=== PATIENT | female | born 1945 | race Caucasian/White ===

== ENCOUNTER → 2019-05-12 | Outpatient (CLI) | payer MEDICARE ==
--- NOTE | 2019-05-12 11:21 | REP ---
DUPLEX CAROTID SONOGRAPHY: HISTORY: Visual disturbances. No comparison study. FINDINGS: Antegrade flow was observed in both vertebral arteries. RIGHT CAROTID: Right common carotid artery is unremarkable except for some diffuse intimal thickening. There is moderate plaquing in the bulb, proximal ICA and proximal ECA. The proximal external carotid artery is occluded. Color flow and spectral Doppler interrogation are normal in the proximal ICA. Velocity Chart Right Carotid: PSV EDV Right CCA 85 cm/s Right ICA 99 cm/s 14 cm/s Right ECA occluded Right ICA/CCA ratio normal 1.17 IMPRESSION: Occluded external carotid artery. Less than 50% narrowing in the right ICA. LEFT CAROTID: Left common carotid artery is unremarkable except for mild intimal thickening. There is mixed plaquing in the bulb and proximal ICA. Color flow and spectral Doppler interrogation are unremarkable on the left. Velocity Chart Left Carotid: PSV EDV Left CCA 82 cm/s Left ICA 57 cm/s 16 cm/s Left ECA 80 cm/s Left ICA/CCA ratio was normal 0.7 IMPRESSION: Less than 50% category narrowing in the left ICA. Electronically Signed by Rohith Marin MD 05/12/2019 03:29 P
== END ==
LOC: M RAD 06:47
PROVIDERS: ATTEND Ophthalmology Retina Specialist
DX: H35.82 Retinal ischemia (principal); I65.23 Occlusion and stenosis of bilateral carotid arteries

== ENCOUNTER → 2019-05-14 | Outpatient (REF) | payer MEDICARE ==
[2019-05-14 17:00] LABS: CALCIUM LEVEL 9.3 MG/DL (8.8-10.2); CHOLESTEROL RISK RATIO 2.593 (<5); CREATININE FOR GFR 1.07 MG/DL (0.55-1.30); GLOMERULAR FILTRATION RATE 53.8 (>39); POTASSIUM SERUM 4.1 MEQ/L (3.5-5.1)
[2019-05-14 17:08] LABS: HEMOGLOBIN A1c 7.2 %
[2019-05-14 17:31] LABS: CREATININE, URINE 94.4 MG/DL; MALB URINE SIEMENS 54.5 MG/L; MAU/CREAT RATIO 57.7 MCG/MG (0.0-30.0)
== END ==
LOC: M SFHCPLAZ 15:26
DX: E11.59 Type 2 diabetes mellitus with other circulatory complications (principal)
CPT/HCPCS: 36415; 80048; 80061; 82043; 82607; 83036; G0463